=== PATIENT | male | born 1995 | race Caucasian/White ===

== ENCOUNTER 2018-06-07 01:22 | Emergency (ER) | payer BC ==
[~2018-06-07] VITALS: Ht 180.3 cm; Wt 62.6 kg
[2018-06-07 01:24] VITALS: BP 134/81
== END 2018-06-07 02:30 | disposition home or self-care (01) ==
LOC: ED 01:42
DX: S05.12XD Contusion of eyeball and orbital tissues, left eye, subsequent encounter (principal); X58.XXXD Exposure to other specified factors, subsequent encounter
CPT/HCPCS: 99283